=== PATIENT | male | born 1950 | race Caucasian/White ===

== ENCOUNTER 2016-05-25 04:03 | Emergency (ER) | payer MEDICARE ==
[~2016-05-25] VITALS: Ht 185.4 cm; Wt 106.8 kg
[~2016-05-25 04:03] MED LIST: IBUP-1152 PO; LOPRESSOR25 MG PO
[2016-05-25 04:10] VITALS: BP 185/106; PULSE 88; RESP 22; O2SAT 97
--- NOTE | 2016-05-25 04:23 | ED.REPORT ---
HPI-General Illness Date of Service May 25, 2016 ED Provider: Dr. Shell Pt is a 66 y/o male w/ a hx of everyday smoking, hypertension, presenting to the ED due to gradually worsening SOB onset 4 days ago. Pt c/o associated brown productive cough, wheezing, now resolved fever. He recently quit smoking 4 days ago because of feeling unwell. He denies N/V/D, any pain. He has felt similar symptoms previously with bronchitis. Nursing Notes Stated Complaint: DIFFICULTY BREATHING Chief Complaint: Respiratory Distress Nursing Notes Reviewed: Yes Allergies: Coded Allergies: No Known Allergies (Verified Allergy, Unknown, 05/25/16) Scheduled Albuterol HFA (Proair HFA) 8.5 Gm Hfa.aer.ad 2 PUFFS INHALATION Q4H Metoprolol Tart-Expunged Drug, Do Not Renew! (Metoprolol Tart-Expunged Drug, Do Not Renew!) 25 Mg Tab 25 MG PO BID Oseltamivir Phosphate (Tamiflu) 75 Mg Capsule 75 MG PO BID Prednisone (PredniSONE) 20 Mg Tablet 60 MG PO DAILY Scheduled PRN IBUPROFEN-Expunged Drug, Do Not Renew! (IBUPROFEN-Expunged Drug, Do Not Renew!) 800 Mg Tablet 800 MG PO PRN General Time Seen by MD: 04:22 Chief Complaint Other (SOB) Hx Obtained From: Patient Arrived By: Walk-in Sudden in Onset?: No Onset Occurred: 2 days ago Symptom Duration: Since onset Severity: Current: No pain currently Severity: Maximum: No pain Similar Sx Previous: Yes Past Medical History Past Medical History A-fib - pt took himself off Coumadin Hypertension Bronchitis Back pain Hx hernia Past Surgical History Knee Hernia repair Smoking History Current Every Day Smoker Social History Alcohol Use: "Social" Ambulatory Status Independent Review of Systems Full Review of Systems Constitutional: Reports: Fever Respiratory: Reports: Prod cough, brown, Shortness of breath, Wheezing Cardiovascular: Denies: Chest pain GI: Denies: Abdominal pain, Diarrhea, Nausea, Vomiting Complete sys rev & neg: except as marked. Physical Exam Vital Signs Vital Signs Date Time Temp Pulse Resp B/P Pulse Ox O2 Delivery O2 Flow Rate FiO2 05/25/16 06:12 36.7 76 16 136/78 96 Room Air 05/25/16 04:58 73 20 97 Room Air 05/25/16 04:10 36.5 88 22 185/106 97 Room Air Initial VS: Reviewed, Vital signs abnormal Head / Eyes: Atraumatic, Normocephalic, PERRL Neck: Supple, Full range of motion Cardiovascular: Regular rate & rhythm, Heart sounds normal, Intact distal pulses Extremities: Vascular intact, Neuro intact, No swelling, No tenderness Skin: Warm, Dry, No cyanosis Neurologic: Alert, Oriented, Nonfocal Psychiatric: Mood/affect normal, Behavior normal, Normal thought content General/Constitutional: Awake, Alert, No acute distress, Cooperative, Not toxic appearing ENT: Atraumatic, Airway patent Mouth: Positive: Mucous membranes dry (mild) Respiratory / Chest: Atraumatic, No rales, No rhonchi Resp Distress / Stridor: Positive: Resp distress mild Wheezing bilaterally Using accessory muscles Back: Atraumatic, No midline vertebral tend Low back shoe worker bilaterally, chronic pain Interpretation & Diagnostics X-Ray Chest Interpretation Chest Xray Interpretation: Scar or atelectatic wedge of the right lobe. Appears chronic. No comparison available. View: Portable, AP & lat Interpretation / Wet Read by: Wet read ED physician Re-Eval/Medical Decision Med Decision/Clinical Course 66-year-old smoker presents with cough productive of yellowish jimenez sputum, shortness of breath, and it is the shortness of breath that has got his attention finally. He has not smoked for four days in hopes to quit entirely. His chest x-ray has a chronic-appearing wedge in the right mid field that does not appear to be an acute pneumonia but a scar. No other infiltrative abnormalities. Influenza swab is positive for a influenza. He is begun with prednisone and Tamiflu and albuterol nebulizer with improvement. Discharged home in stable condition. Smoking cessation discussed at length Time of Eval: 05:42 Re-Evaluation/Progress Note: Pt rechecked. Informed pt of plan for treatment. Pt understands and agrees with plan for treatment. F/U and RTER warnings given. All questions addressed. Counseled Regarding: Diagnosis, Lab results, Need for follow-up, When/why to return to ED Discharge & Departure Primary Impression: Influenza A Additional Impression: COPD exacerbation Disposition: Home Discharge Condition All VS Reviewed: Yes Condition: Stable Patient Instructions: Influenza (ED) Additional Instructions: You have influenza A. Take three prednisone daily for five days. Albuterol two puffs with spacer every 3-4 hours as needed. Tamiflu twice daily. Follow-up with your doctor in the office. Referrals: [facility] (PCP) [facility] Attestation Portions of this note were transcribed by Daniel Jamison. I, Dr. Shell personally performed the history, physical exam and medical decision-making; I reviewed and confirmed the accuracy of the information in the transcribed note. Signed by Josh Schaeffer, 05/25/16 - 0441 Merritt Shell MD May 25, 2016 04:23 DANIEL JAMISON May 25, 2016 04:42
[2016-05-25] MEDS ORDERED: Albuterol 2.5 mg/3 mL Inhalation Solution NEB ONE (04:45)
[2016-05-25] MEDS ORDERED: Albuterol-Ipratropium 3 mL Inhalation Solution NEB ONE (04:45)
[2016-05-25] MEDS ORDERED: Dexamethasone 20 mg/2 mL Oral Solution PO ONE (04:45)
[2016-05-25 04:58] VITALS: PULSE 73; RESP 20; O2SAT 97
[2016-05-25] MEDS ORDERED: PRE20 PO (05:39)
[2016-05-25] MEDS ORDERED: TAM75UDCAP PO (05:39)
[2016-05-25] MEDS ORDERED: ALBU8.5H2 INHALATION (05:39)
[2016-05-25 06:12] VITALS: BP 136/78; PULSE 76; RESP 16; O2SAT 96
--- NOTE | 2016-05-25 07:17 | DRSVH ---
PROCEDURE: X-RAY CHEST, TWO VIEWS ([id number]) INDICATIONS: 66 year-old male with shortness of breath and COPD. TECHNIQUE: 2 views of the chest were acquired. COMPARISON: None. FINDINGS: Surgical changes and devices: None. Lungs and pleura: No pleural effusions or pneumothorax. Lungs are clear. Mediastinum: Mediastinal contours are normal. There is mild cardiomegaly. Bones and chest wall: No suspicious bony abnormalities. Soft tissues appear unremarkable. IMPRESSION: Cardiomegaly, without acute cardiopulmonary disease. Dictated by: Louis Stiles M.D. on 05/25/2016 at 7:15 Approved by: Louis Stiles M.D. on 05/25/2016 at 7:15
== END 2016-05-25 05:40 | disposition home or self-care (01) ==
LOC: SED 04:03
DX: J10.1 Influenza due to other identified influenza virus with other respiratory manifestations (principal); J44.1 Chronic obstructive pulmonary disease with (acute) exacerbation; I48.92 Unspecified atrial flutter; I10 Essential (primary) hypertension; F17.200 Nicotine dependence, unspecified, uncomplicated
CPT/HCPCS: 71020; 87804; 94664; 99284; J7613; J7620

== ENCOUNTER 2016-10-01 10:04 | Emergency (ER) | payer MEDICARE ==
[~2016-10-01] VITALS: Ht 185.4 cm; Wt 103.6 kg
[~2016-10-01 10:04] MED LIST changes: +ALBU8.5H2 INHALATION; +PRE20 PO; +TAM75UDCAP PO
[2016-10-01 10:11] VITALS: BP 132/78; PULSE 85; RESP 18; O2SAT 97
--- NOTE | 2016-10-01 10:25 | ED.REPORT ---
HPI-General Illness Date of Service October 01, 2016 ED Provider: Laurel Saul MD 66 y/o male with a hx of HTN and A-fib presents to the ED complaining of back pain, worse behind his left shoulder, onset 2 hours ago. The pt reports he was stressed out about [place] a friend to the airport when he suddenly began experiencing "hot" pain between his shoulders, left arm and left thigh. He denies pain in the back of his left shoulder upon palpation. The pt took Cialis last night. He is also prescribed metoprolol. He has only been taking 1qd while he was prescribed 2qd. The pt was given an Aspirin at ED. Nursing Notes Stated Complaint: BACK PAIN,LEFT THIGH PAIN Chief Complaint: Back Pain or Injury Nursing Notes Reviewed: Yes Allergies: Coded Allergies: No Known Allergies (Verified Allergy, Unknown, 05/25/16) Scheduled Albuterol HFA (Proair HFA) 8.5 Gm Hfa.aer.ad 2 PUFFS INHALATION Q4H Metoprolol Tart-Expunged Drug, Do Not Renew! (Metoprolol Tart-Expunged Drug, Do Not Renew!) 25 Mg Tab 25 MG PO BID Oseltamivir Phosphate (Tamiflu) 75 Mg Capsule 75 MG PO BID Prednisone (PredniSONE) 20 Mg Tablet 60 MG PO DAILY Scheduled PRN IBUPROFEN-Expunged Drug, Do Not Renew! (IBUPROFEN-Expunged Drug, Do Not Renew!) 800 Mg Tablet 800 MG PO PRN General Time Seen by MD: 10:24 Chief Complaint Multip medical complaints (Pain behind left shoulder, in the left arm and left thigh.) Hx Obtained From: Patient Arrived By: Walk-in Sudden in Onset?: Yes Onset Occurred: 1 - 4 hours ago Symptom Duration: Since onset Location: : Arm left: Shoulder left: Thigh left Quality: Painful Severity: Current: Mild Severity: Maximum: Moderate Recent Healthcare: No recent doctor visit Similar Sx Previous: No Past Medical History Past Medical History A-fib - pt took himself off Coumadin Hypertension Bronchitis Back pain Hx hernia Past Surgical History Knee Hernia repair Smoking History Current Every Day Smoker Social History Alcohol Use: "Social" Ambulatory Status Independent Review of Systems Full Review of Systems Musculoskeletal: Reports: Back pain (Behing the left shoulder), Extremity pain (Left arm and left thigh) Complete sys rev & neg: except as marked. Physical Exam Vital Signs Vital Signs Date Time Temp Pulse Resp B/P Pulse Ox O2 Delivery O2 Flow Rate FiO2 10/01/16 14:53 71 18 140/74 99 Room Air 10/01/16 12:31 71 17 128/60 99 Room Air 10/01/16 10:11 36.8 85 18 132/78 97 Room Air Initial VS: Reviewed Head / Eyes: Atraumatic, Normocephalic, PERRL ENT: Mucous membranes moist, Conjunctiva normal, No scleral icterus Neck: Supple, Non-tender, Full range of motion Respiratory: Breath sounds normal, Clear to auscultation, No respiratory distress Cardiovascular: Regular rate & rhythm, Heart sounds normal, Intact distal pulses Abdomen / GI: Soft, Non-tender, No guarding, No rebound, No distention Extremities: Vascular intact, Neuro intact, No swelling, No tenderness Neurologic: Alert, Oriented, Nonfocal General/Constitutional: Awake, Well appearing, Cooperative Skin: Atraumatic, Warm, Dry Bilateral enamorado eczema Interpretation & Diagnostics Lab Results Interpretation Result Diagram: 10/01/16 1120 10/01/16 1120 Test 10/01/16 11:20 10/01/16 13:45 White Blood Count 4.4th/mm3 (3.8-10.1) Red Blood Count 4.76mil/mm3 (4.40-5.80) Hemoglobin 13.7g/dL (13.8-17.2) Hematocrit 40.0% (41.0-50.0) Mean Corpuscular Volume 84.0fL (81-100) Mean Corpuscular Hemoglobin 28.8pg (27.0-35.0) Mean Corpuscular Hemoglobin Concent 34.3% (32.0-37.0) Red Cell Distribution Width 15.9% (12.3-15.4) Platelet Count 134bil/L (150-400) Neutrophils (%) (Auto) 57.1% (40-74) Lymphocytes (%) (Auto) 21.1% (14-46) Monocytes (%) (Auto) 19.3% (4-12) Eosinophils (%) (Auto) 1.6% (0-5) Basophils (%) (Auto) 0.7% (0-3) Sodium Level 140mEq/L (134-144) Potassium Level 4.0mEq/L (3.5-5.2) Chloride Level 105mEq/L (97-108) Carbon Dioxide Level 22mmol/L (18-29) Blood Urea Nitrogen 15mg/dL (8-27) Creatinine 0.86mg/dL (0.76-1.27) Estimat Glomerular Filtration Rate 95mL/min (>59) Glucose Level 74mg/dL (60-99) Calcium Level 9.0mg/dL (8.5-10.1) Magnesium Level 1.9mg/dL (1.6-2.6) Total Bilirubin 0.5mg/dL (0.0-1.2) Aspartate Amino Transf (AST/SGOT) 46U/L (0-50) Alanine Aminotransferase (ALT/SGPT) 32U/L (0-44) Alkaline Phosphatase 73U/L (25-160) Total Protein 6.3g/dL (6.4-8.4) Albumin 3.6g/dL (3.4-5.0) Hold Pérez Top Tube Received (Received) Troponin T < 0.010ug/L (0.0-0.011) ECG Interpretation ECG Interpretation: Atrial Fibrillation. Rate 72 Right bundle branch block Time: 10:36 Interpreted by: ED physician ECG Interpretation: Atrial fibrillation. Rate 61. Right bundle branch block. Repeat EKG with pain. Time: 13:08 Interpreted by: ED physician Repeat ECG: Repeat ECG unchanged X-Ray Chest Interpretation Chest Xray Interpretation: IMPRESSION: 1. No definite acute cardiopulmonary disease. Dictated by: Frederick Turner M.D. on 10/01/2016 at 11:30 Approved by: Frederick Turner M.D. on 10/01/2016 at 11:42 View: Portable, 1 view Interpretation / Wet Read by: Interpret - Radiologist Re-Eval/Medical Decision Med Decision/Clinical Course 66-year-old gentleman with known coronary artery disease who took cyanosis yesterday and had an active evening and morning presents with pain across the mid section of his back that is not reproducible with exertion nor is it reproducible with palpation or movement. It waxes and wanes over the course of his emergency room visit. His initial troponin drawn approximately 2 hours after the onset of pain was unremarkable as well as repeat troponin 3 hours later. EKGs remain unremarkable and he had no response to nitroglycerin. He very firmly feels this is musculoskeletal pain and at this point I feel is safe for him to go home and encouraged him to return should chest pain recur. Also encouraged him to follow up with primary care to help further risk stratify his coronary artery disease Source of Hx: Old records Time of Eval: 12:51 Patient Status: Moderate relief Re-Evaluation/Progress Note: Rechecked pt. Discussed lab and imaging results. The pt states his pain temporarily resolved but has now returned. He believes it's his back pain exacerbated. He also reports he feels better when he stands up. Discussed the need for more Nitroglycerin and more lab work to check for Troponin. Pt understands and agrees with the plan. Time of Eval: 14:15 Patient Status: Condition improved Re-Evaluation/Progress Note: Rechecked pt. His pain has resolved after Nitro administration. Discussed repeat lab results and diagnosis. Informed the pt of the plan to discharge. Pt understands and agrees with plan. F/U instructions and RTER warning given. All questions addressed. Counseled Regarding: Diagnosis, Lab results, Need for follow-up, When/why to return to ED Discharge & Departure Primary Impression: Back pain Back pain location: back pain in other location Chronicity: unspecified Qualified Code: M54.89 - Other dorsalgia Ruled Out: Acute coronary syndrome Disposition: Home Discharge Condition All VS Reviewed: Yes Your work up today is very reassuring. The pain through your back does NOT seem to be related to your heart. I appreciate you letting me be through today, you have been very patient. It is safe to use ibuprofen and go back to routine activities. If you have recurrent pain, dyspnea, diaphoresis with increased activity then you need to return to the ER. Good luck! Referrals: [facility] Scribe Attestation Portions of this note were transcribed by Chela De Souza. I, , personally performed the history, physical exam and medical decision-making;I reviewed and confirmed the accuracy of the information in the transcribed note. Signed by Josh Garcia. 10/01/16 1113 copies to: [facility] Laurel Saul MD October 01, 2016 10:25 Chela De Souza October 01, 2016 10:32
[2016-10-01 11:29] LABS: BASOPHILS % (AUTO) 0.7 % (0-3); EOSINOPHILS % (AUTO) 1.6 % (0-5); MONOCYTES % (AUTO) 19.3 % (4-12); Mean Corpuscular Hemoglobin 28.8 pg (27.0-35.0); NEUTROPHILS % (AUTO) 57.1 % (40-74); Platelet Count 134 bil/L (150-400)
--- NOTE | 2016-10-01 11:43 | DRSVH ---
PROCEDURE: X-RAY CHEST ONE VIEW, PORTABLE ([id number]) INDICATIONS: CHEST PAIN TECHNIQUE: One view of the chest was acquired. COMPARISON: [facility], CR, XR CHEST 2VW, 05/25/2016, 4:59. FINDINGS: Surgical changes and devices: None. Lungs and pleura: No pleural effusions or pneumothorax. Evaluation limited due to lordotic projecti on. Lungs are grossly clear. Mediastinum: Heart size appears enlarged which may be due to portable technique. Bones and chest wall: No suspicious bony lesions. Overlying soft tissues appear unremarkable. IMPRESSION: 1. No definite acute cardiopulmonary disease. Dictated by: Frederick Turner M.D. on 10/01/2016 at 11:30 Approved by: Frederick Turner M.D. on 10/01/2016 at 11:42
[2016-10-01 11:51] LABS: TROPONIN T < 0.010 ug/L (0.0-0.011)
[2016-10-01 12:22] LABS: Magnesium 1.9 mg/dL (1.6-2.6)
[2016-10-01 12:31] VITALS: BP 128/60; PULSE 71; RESP 17; O2SAT 99
[2016-10-01 14:53] VITALS: BP 140/74; PULSE 71; RESP 18; O2SAT 99
== END 2016-10-01 14:35 | disposition home or self-care (01) ==
LOC: SED 10:04
DX: M54.89 Other dorsalgia (principal); I10 Essential (primary) hypertension; F17.200 Nicotine dependence, unspecified, uncomplicated